=== PATIENT | female | born 1990 | race Caucasian/White ===

== ENCOUNTER → 2024-01-22 10:04 | Outpatient (REF) | payer OTHER, SELFPAY | LOC: RAD 10:04 | PROVIDERS: ATTENDING PHYSICIAN Registered Nurse | DX: R10.31 Right lower quadrant pain (principal) | CPT/HCPCS: 76830; 76856 ==

== ENCOUNTER → 2024-01-29 09:36 | Outpatient (REF) | payer OTHER, SELFPAY | LOC: HWRAD 09:36 | PROVIDERS: ATTENDING PHYSICIAN Registered Nurse | DX: R10.31 Right lower quadrant pain (principal) | CPT/HCPCS: 74177; Q9967 ==